=== PATIENT | female | born 1940 | race Caucasian/White ===

== ENCOUNTER 2019-12-08 10:28 | Outpatient (CLI) | payer MEDICARE, OTHER, SELFPAY ==
--- NOTE | 2019-12-11 17:54 | ONC FU_ITS ---
Dr. Lopez Patient Follow-Up Note Patient: Jenna Weiss Unit #: [id number]: [id number] Dicatated By: Noam Lopez M.D.Date of Visit:Dec 08, 2019 Onc Med Follow-up/Prog Note Chief Complaint: Breast cancer/hemochromatosis. History of Present Illness: This is a 77 year-old woman with grade 2 infiltrating ductal carcinoma of the right breast, stage IIB (T2, N2, M0), ER/ND positive and HER-2/connie negative. 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 She underwent right modified radical mastectomy in January 2004. She was given adjuvant chemotherapy with 5-FU/epirubicin/cyclophosphamide. She had severe toxicities with her first cycle of treatment and she received no further chemotherapy. She subsequently did receive 5 years of adjuvant hormonal therapy with Femara, which she completed in February 2009. Thus far there has been no evidence of recurrence of her breast cancer. I had seen her for a scheduled follow-up visit in May 2014. Prior to that visit she had been told by her primary care provider that her iron level was elevated. With that visit, I did recheck a serum ferritin level, and it was indeed elevated at 645 ng/mL. 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 She was then started on a phlebotomy program. As of March 2016 her transferrin saturation and ferritin level were both in target range, and I did have her stop phlebotomies. Her other medical illnesses include type 2 diabetes, degenerative arthritis, and osteoporosis. She underwent right total knee replacement in March 2014. She is a nonsmoker. INTERIM HISTORY: Her laboratory studies from 08/07/2017 included CBC showing hemoglobin 15.5 g, white blood cell count 4600, and platelet count 138,000. The serum iron was elevated at 184 mcg/dL with transferrin saturation 66%. The ferritin level was 127 ng/mL. With those findings, I did have her restart monthly phlebotomies. As of February 2018 the transferrin saturation had decreased to 21%. Ferritin was in target range at 37.7 ng/mL. At that point the frequency of her phlebotomies was reduced to every 3 months. She is seen for a follow-up visit. She has been feeling good generally. She has good energy and activity tolerance. ECOG score 0. Appetite is good. She has no fever or night sweats. She has no shortness of breath, cough, or chest pain. She has no GI or complaints. She has no significant joint or bone pain. She does not complain of headache or dizziness. She has no focal neurologic symptoms. Medications: She is on no prescription medication. Allergies: ibuprofen Review of Systems: Constitutional - She has good energy and she has normal activity. Appetite is good and weight is stable. No fever, night sweats, or hot flashes. ECOG score is 0, ENMT - She has allergy related sinus symptoms. No mouth sores. No sore throat or difficulty swallowing, Hematologic/Lymphatic - No abnormal bruising or bleeding, Respiratory - No shortness of breath. No cough. No pleuritic pain or hemoptysis, Cardiovascular - No angina pain. No palpitations, Gastrointestinal - No nausea or vomiting. No heartburn or acid reflux. No diarrhea or constipation. No blood in the stool or black stools, Genitourinary (F) - No dysuria or hematuria. No urinary frequency. No urgency or incontinence, Musculoskeletal - No joint or bone pain, Integumentary - No skin changes, Neurologic - No headache or dizziness. No numbness or tingling. No other focal neurologic symptoms, Psychiatric - No anxiety or depression. No insomnia. Vital Signs: Performed on Dec 08, 2019 10:47 Height - 66.00 in Weight - 162 lbs (HIGH) BSA - 1.83 sq.m BMI - 26.15 Temperature - 97.5 F (LOW) Pulse - 76 /min Respiration - 16 /min BP - 130/80 mm(hg) O2 Sat - 97 % Pain - 0 Physical Examination: Constitutional - She looks good generally, Eyes - Sclerae nonicteric. Conjunctivae clear, ENMT - No lesions noted in the oral cavity, Hematologic/Lymphatic - No cervical, clavicular, or axillary adenopathy, Respiratory - Lungs are clear with good air movement bilaterally, Cardiovascular - Heart rhythm is regular. There is no murmur, gallop, or rub noted, Breasts - There are no lesions noted in the right chest wall. There is no axillary adenopathy, Abdomen - Soft. Liver and spleen are not enlarged. There is no abdominal mass or ascites noted and there is no inguinal adenopathy, Extremities - No edema, Integumentary - No rashes. No suspicious skin lesions noted, Neurologic - No focal neurologic deficits noted. Lab/Imaging: Test performed on Dec 07, 2019 12:53 Glucose 106 mg/dL BUN 14 mg/dL Creatinine 1.06 mg/dL Cr Clearance (Est) 50.92 mL/min Sodium 141 mmol/L Potassium 4 mmol/L Chloride 104 mmol/L CO2 27 mmol/L Calcium 9.6 mg/dL Protein, Total 7.2 g/dL Albumin 4.4 g/dL Bilirubin, Total 0.9 mg/dL Alkaline Phosphatase 78 IU/L AST (SGOT) 20 IU/L ALT (SGPT) 12 IU/L WBC 6 10^9/L RBC 4.88 10^12/L HGB 14.7 g/dL HCT 45.2 % MCV 92.6 fl MCH 30.1 pg MCHC 32.5 g/dL RDW 13.6 % Platelet Count 152 10^9/L Neutrophils (Gran) 3.86 10^9/L Lymphocytes 1.66 10^9/L Monocytes 0.32 10^9/L Eosinophils .08 10^9/L Basophils .03 10^9/L Test performed on Dec 07, 2019 08:49 Ferritin 47.1 ng/mL % Iron Saturation 54 % Iron, Total 146 mcg/dL TIBC 268 mcg/dL MPV 10.9 fL Manual Lymphocytes 28 % Manual Monocytes 5 % Manual Eosinophils 1 % Manual Basophils 1 % Impression: 1. Patient has stage IIB infiltrating ductal carcinoma of the right breast, ER/ND positive and HER-2/connie negative. Treatment included right modified radical mastectomy in January 2004 followed by one cycle of adjuvant chemotherapy wtih FEC and 5 years of adjuvant hormonal therapy with Femara, completed in February 2009. 2. 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 Her other medical illnesses include: 3. Type II diabetes. 4. Osteoporosis. 5. Degenerative arthritis. She was managed on a phlebotomy program for the hemochromatosis. As of March 2016 her transferrin saturation and ferritin were in target range, and I did have her stop phlebotomies. Her follow-up laboratory studies in July 2017 showed her transferrin saturation increased at 66% with ferritin level 127 ng/mL. With those findings, she has restarted monthly phlebotomies. As of February 2018 her transferrin saturation and serum ferritin were in target range, and at that point I reduced the frequency of her phlebotomies to every 3 months. Her subsequent transferrin saturation and ferritin levels had improved, and at that point I did change her phlebotomies to 1/2 unit, as she was getting lightheaded with a full unit phlebotomy. She has since then been tolerating them well. Her current serum iron studies show slightly elevated transferrin saturation at 52%, but the ferritin is in target range at 47 ng/mL. Overall, she is doing very well clinically. Plan: She will continue 1/2 unit phlebotomy every 3 months. I will recheck serum iron studies and ferritin at 6-month intervals. I will see her again in 1 year. Signed By: Noam Lopez M.D. <<Signature on File>>
== END 2019-12-08 10:29 | disposition home or self-care (01) ==
LOC: ONCMED 10:29
PROVIDERS: Family Provider Nurse Practitioner Family; Visit Provider Internal Medicine Medical Oncology
DX: Z08 Encounter for follow-up examination after completed treatment for malignant neoplasm (principal); Z85.3 Personal history of malignant neoplasm of breast; E83.110 Hereditary hemochromatosis; D50.9 Iron deficiency anemia, unspecified; M81.0 Age-related osteoporosis without current pathological fracture; E11.9 Type 2 diabetes mellitus without complications; Z79.899 Other long term (current) drug therapy
CPT/HCPCS: 99214

== ENCOUNTER → 2020-05-20 13:58 | Outpatient (BNVA) | payer MEDICARE, OTHER, SELFPAY | PROVIDERS: Family Provider Nurse Practitioner Family; Visit Provider Surgery | DX: Z20.822 Contact with and (suspected) exposure to COVID-19 (principal) | CPT/HCPCS: 87635 ==

== ENCOUNTER 2020-05-25 07:59 | Day surgery (SDC) | payer MEDICARE, OTHER, SELFPAY ==
[2020-05-23 11:01] VITALS: BMI 26.6
--- NOTE | 2020-05-25 08:19 | ANES.PREANE2 ---
Pre-Anesthetic Assessment Pre-Anesthetic Assessment: Height/Weight: Height 1.65 m Weight 72.575 kg Preop Diagnosis: nausea Proposed Procedure: Operation Date: 05/25/20 09:30 Proposed Procedures p EGD 31371 R10.9(Not Applicable) - aRmu Walton MD Familial anesthetic complications: None Was Beta Jeúss taken within 24 hours: N/A Was Clonidine taken within 24 hours: N/A Last intake: > 8 hrs Social: Social History: No alcohol and No tobacco Exam: Pre-Anes Outpt Exam: alert, oriented x 3, clear to auscultation bilaterally and regular rate & rhythm Airway: Cervical ROM: WNL MP: 3 Dentition: False Metabolic: Metabolic: DM (type 2, diet and lifestyle controlled) Anesthetic Plan: ASA status: 1 Anesthesia: MAC Risk of > 500 ml blood loss (7ml/kg in children): No PFSH Anesthesia PFSH: Social History Smoking and tobacco status: never smoked Second hand smoke exposure: No Alcohol intake: never Desire information about alcohol rehabilitation?: No Lives independently: Yes Data Anesthesia Cardiac Studies: No Data to Display
[2020-05-25 08:54] VITALS: BP 138/87; PULSE 70; RESP 16; TEMP 36.1; O2SAT 98
[2020-05-25] MEDS: sodium chloride 0.9% 1,000 ML 30 ML IV (08:56)
[2020-05-25 09:00] LABS: Glucose Point of Care 97 mg/dL (70-110)
--- NOTE | 2020-05-25 10:57 | W.PM.OPSUD ---
Surgery/Procedure H&P Update DATE OF PROCEDURE: May 25, 2020 DATE H&P PERFORMED: 05/02/20 H&P UPDATE INFORMATION: I have reviewed H&P completed within last 30 days, I have examined patient prior to procedure and No changes to prior documentation PREOP DIAGNOSIS: Anorexia PRIMARY INDICATION FOR PROCEDURE: The same PLANNED PROCEDURE: Operation Date: 05/25/20 09:30 Proposed Procedures p EGD 50735 R10.9(Not Applicable) - Ramu Walton MD
[2020-05-25 11:16] VITALS: BP 121/63; PULSE 74; RESP 18; TEMP 36.9; O2SAT 100
--- NOTE | 2020-05-25 11:17 | ANE.PACU2 ---
Inpatient post-anesthesia follow up: Airway intact: Yes Vital signs: Temperature 97 F Pulse Rate 70 Respiratory Rate 16 Blood Pressure 138/87 Pulse Oximetry 98 Oxygen Delivery Me thod Oxygen Flow Rate Fraction of Inspir ed Oxygen Hydration adequate: Yes Nausea and vomiting: No Pain level: 1 Mental status: Baseline
[2020-05-25 11:31] VITALS: BP 141/70; PULSE 65; RESP 16; O2SAT 100
== END 2020-05-25 11:50 | disposition home or self-care (01) ==
PROVIDERS: PCP Nurse Practitioner Family; Visit Provider Surgery
PROC: 0DJ08ZZ Inspection of Upper Intestinal Tract, Via Natural or Artificial Opening Endoscopic (ICD-10-PCS; CPT 43235; principal; 2020-05-25 09:30)
DX: R63.0 Anorexia (principal); K31.7 Polyp of stomach and duodenum; K44.9 Diaphragmatic hernia without obstruction or gangrene; K29.70 Gastritis, unspecified, without bleeding; E11.9 Type 2 diabetes mellitus without complications; R11.0 Nausea
CPT/HCPCS: 36416; 43239; 82962; 88305; 96360; 96361; J2704; J7030

== ENCOUNTER 2020-06-20 08:19 | Outpatient (CLI) | payer MEDICARE, OTHER, SELFPAY ==
--- NOTE | 2020-06-20 08:28 | US_ITS ---
WS: [id number] ULTRASOUND ABDOMEN LIMITED CLINICAL INFORMATION: ABDOMINAL PAIN COMPARISON: None. FINDINGS: Liver Size: Normal. Craniocaudal length: 13.8 cm. Echogenicity: Normal. Surface nodularity: None. Mass (size and location): None. Bile ducts Intrahepatic ducts: Normal. Common bile duct diameter: 0.5 cm. Gallbladder Gallstones Gallstones: Present Gallbladder sludge: None. Gallbladder wall thickening: None. Pericholecystic fluid: None. Sonographic Banegas sign: Absent. Pancreas Normal as visualized. Right kidney: Normal. Hydronephrosis: None. Size: 9.8 cm x 5.0 cm x 3.8 cm. Abdominal aorta and IVC Visualized portions are normal. Ascites: None. US/US gall bladder 06044 IMPRESSION: 1. Normal liver. 2. Cholelithiasis. Normal gallbladder wall. Normal common bile duct. 3. No hydronephrosis in right kidney.
== END 2020-06-20 08:20 | disposition home or self-care (01) ==
LOC: US 08:20
PROVIDERS: PCP Nurse Practitioner Family; Visit Provider Surgery
DX: R10.9 Unspecified abdominal pain (principal); K80.20 Calculus of gallbladder without cholecystitis without obstruction
CPT/HCPCS: 76705

== ENCOUNTER 2020-07-21 05:57 | Day surgery (SDC) | payer MEDICARE, OTHER, SELFPAY ==
[2020-07-15 11:50] VITALS: BMI 26.6
[2020-07-21] VITALS (9 sets, daily range): BP systolic 105–143; BP diastolic 48–78; PULSE 58–79; RESP 12–20; TEMP 36.1–36.4; O2SAT 96–100
[2020-07-21] MEDS: acetaminophen 1,000 MG/100 ML PIGGYBACK 400 MG IV (06:30)
[2020-07-21] MEDS: sodium chloride 0.9% 1,000 ML 30 ML IV (06:30)
--- NOTE | 2020-07-21 06:31 | W.PM.OPSUD ---
Surgery/Procedure H&P Update DATE OF PROCEDURE: July 21, 2020 DATE H&P PERFORMED: 06/23/20 H&P UPDATE INFORMATION: I have reviewed H&P completed within last 30 days, I have examined patient prior to procedure and No changes to prior documentation PREOP DIAGNOSIS: Symptomatic cholelithiasis PRIMARY INDICATION FOR PROCEDURE: The same PLANNED PROCEDURE: Operation Date: 07/21/20 07:00 Proposed Procedures p Laparoscopic poss Open Cholecystectomy 05175 K80.20(Not Applicable) - Ramu Walton MD
[2020-07-21] MEDS: ampicillin-sulbactam 3 GM in sodium chloride 0.9% (plus) 50 ML IV (06:55)
--- NOTE | 2020-07-21 07:00 | ANES.PREANE2 ---
Pre-Anesthetic Assessment Pre-Anesthetic Assessment: Height/Weight: Height 1.65 m Weight 72.575 kg Temp Pulse Resp BP Pulse Ox 97.1 F L 79 16 141/78 97 07/21/20 06:15 07/21/20 06:15 07/21/20 06:15 07/21/20 06:15 07/21/20 06:15 Preop Diagnosis: Symptomatic cholelithiasis Proposed Procedure: Operation Date: 07/21/20 07:00 Proposed Procedures p Laparoscopic poss Open Cholecystectomy 41627 K80.20(Not Applicable) - Ramu Walton MD Was Beta Jesús taken within 24 hours: N/A Was Clonidine taken within 24 hours: N/A Last intake: Intake Last Liquid Date 07/20/20 Last Liquid Time 21:30 Last Solid Date 07/09/20 Social: Social History: No alcohol and No tobacco Exam: Pre-Anes Outpt Exam: alert, oriented x 3, clear to auscultation bilaterally and regular rate & rhythm Airway: Submandibular: WNL Cervical ROM: WNL MP: 2 Dentition: False History/ROS: No significant history except as noted Anesthetic Plan: ASA status: 2 Anesthesia: General Risk of > 500 ml blood loss (7ml/kg in children): No Meds/Allergies Current Medications: Current Medications Generic Name Dose Route Start Last Admin Trade Name Freq PRN Reason Stop Dose Admin Sodium Chloride 1,000 mls @ 30 ml s/hr 07/21/20 06:00 07/21/20 06:30 Sodium Chloride 0.9% IV 07/22/20 05:59 30 mls/hr .Q24H TRINH Administration PFSH Anesthesia PFSH: Medical History Gastric diverticulum Gastritis Hiatal hernia Social History Smoking and tobacco status: never smoked Second hand smoke exposure: No Alcohol intake: never Desire information about alcohol rehabilitation?: No Lives independently: Yes Data Anesthesia Cardiac Studies: No Data to Display
[2020-07-21] MEDS: lidocaine 2% INJ 20 mL INJECTION (07:49)
--- NOTE | 2020-07-21 08:08 | PM.OP ---
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 Full H&P and informed consent per chart. Procedure: Patient was identified in the holding area and taken back to the operative suite, placed in supine position intubated by anesthesia . Time-out was done verifying the patient's name/date of /planned procedure and destination after the procedure, all were in agreement. SCDs confirmed to be functioning, preoperative antibiotics administered per protocol, and beta adrienne protocol was confirmed. Patient was appropriately secured to the table, footboard was applied to the OR table, before prep and drape anesthesia was asked to tilt the table back and forth to make sure that the patient is appropriately secured and she was. Prep and drape of the abdomen was done under the usual sterile technique, followed by that infraumbilical skin incision,skin incision was done by a 15 blade knife, and stay sutures were applied to the fascia and Srinivasan trocar technique was used to enter the abdominal without injuring any abdominal viscera, started by low flow gas insufflation followed by a high flow, started with a 10 mm laparoscope and under direct vision there was no evidence of any injuries, the scope then switched to a 30? ,10 millimeter scope and under direct visualization 5 millimeter trocar was inserted in the epigastric region followed by two 5 mm trocars were inserted in the right upper quadrant that was done after injection of local lidocaine 2% at all incision sites. Gallbladder showed acute calculus cholecystitis with edema &with adhesions and the lymph node was associated that was dissected and sent out for permanent pathology. Patient was then positioned in the head up and tilted to the left Ratcheted forceps were introduced into the lateral most 5mm port and was applied unto the fundus of the gallbladder cephalad and using Bullet forceps the infundibulum of the gallbladder was retracted laterally. The gallbladder was markedly distended and I had to aspirate fluid content under direct visualization which was white bilious in color,20 ml of fluid was sent for cultures and sensitivities and at that point I was able to have a better parent educator on the gallbladder. Using [place] forceps then L-hook cautery to dissect the peritoneum overlying the Calot's triangle which was then opened medially and laterally until the cystic duct and the cystic artery were skeletonized. Dissection was carried along the body of the gallbladder and after ensuring critical view of safety was identfied. Edema and thickness of the wall was appreciated and inadvertent opening of the gallbladder encountering larger bigger stones Cystic duct and cystic artery where seen connected to the gallbladder. Clips were applied on the cystic duct towards the common bile duct 1 towards the gallbladder then divided is in sharp scissors, 2 clips were then applied onto the cystic artery and 1 towards the gallbladder and divided by sharp scissors. Dissection was then carried along of the gallbladder from the gallbladder fossa using cautery as well as sharp dissection with heat energy. The gallbladder then was dissected out from the gallbladder fossa totally , cholecystectomy was then achieved and was placed in an Endo Catch bag including the stones all were retrieved from the Srinivasan trocar site under direct visualization using a 5 mm 30? scope through the epigastric trocar, specimen was then passed to the circulating nurse to go for permanent pathology, copious and thorough irrigation and hemostasis was done to the gallbladder fossa after hemostasis was secured, final survey laparoscopy was done that showed no injuries. Suction irrigation was obtained The infra umbilical fascial defect was then closed using interrupted #1 PDS sutures using a fascial closure device ;Maikel Flores under direct visualization Gas was allowed to deflate,Trocars were then taken out under direct vision there was no evidence of bleeding Specimen was passed to the circulating nurse for permanent pathology. No drains were placed and the infra umbilical incision as well as all trocar sites were closed by 3-0 Vicryl followed by by 4-0 Monocryl to approximate the skin edges of the supraumbilical incision, dressing was applied in the form of Dermabond and the patient patient got extubated and was taken to recovery area in a stable condition. Count of sponges,needles and instruments were completed at the end of the procedure I was present for the whole entire procedure.
[2020-07-21] MEDS: HYDROcodone-acetaminophen 5-325 mg Tablet 1 TAB PO (09:25)
--- NOTE | 2020-07-21 15:00 | ANE.PACU2 ---
Inpatient post-anesthesia follow up: Airway intact: Yes Vital signs: Temperature 97.6 F Pulse Rate 58 Respiratory Rate 16 Blood Pressure 105/48 Pulse Oximetry 96 Oxygen Delivery Me thod Room Air Oxygen Flow Rate 8 Fraction of Inspir ed Oxygen Hydration adequate: Yes Nausea and vomiting: No Pain level: 2 Mental status: Baseline
== END 2020-07-21 09:45 | disposition home or self-care (01) ==
PROVIDERS: PCP Nurse Practitioner Family; Visit Provider Surgery
PROC: 0FT44ZZ Resection of Gallbladder, Percutaneous Endoscopic Approach (ICD-10-PCS; CPT 47562; principal; 2020-07-21 07:00)
DX: K80.10 Calculus of gallbladder with chronic cholecystitis without obstruction (principal)
CPT/HCPCS: 47562; 87070; 87075; 87205; 88304; 88305; 96365; J0295; J1100; J2250; J2370; J2405; J2704; J2710; J3010; J3490; J7030

== ENCOUNTER 2021-01-31 16:19 | Outpatient (CLI) | payer MEDICARE, OTHER, SELFPAY ==
--- NOTE | 2021-02-04 07:36 | ONC FU_ITS ---
Dr. Lopez Patient Follow-Up Note Patient: Jenna Weiss Unit #: [id number]: [id number] Dicatated By: Noam Lopez M.D.Date of Visit:Jan 31, 2021 Onc Med Follow-up/Prog Note Chief Complaint: Breast cancer/hemochromatosis. History of Present Illness: This is a 80 year-old woman with grade 2 infiltrating ductal carcinoma of the right breast, stage IB (T2, N2, M0), ER/FL positive and HER-2/connie negative. 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 She underwent right modified radical mastectomy in January 2004. She was given adjuvant chemotherapy with 5-FU/epirubicin/cyclophosphamide. She had severe toxicities with her first cycle of treatment and she received no further chemotherapy. She subsequently did receive 5 years of adjuvant hormonal therapy with Femara, which she completed in February 2009. Thus far there has been no evidence of recurrence of her breast cancer. I had seen her for a scheduled follow-up visit in May 2014. Prior to that visit she had been told by her primary care provider that her iron level was elevated. With that visit, I did recheck a serum ferritin level, and it was indeed elevated at 645 ng/mL. 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 She was then started on a phlebotomy program. As of March 2016 her transferrin saturation and ferritin level were both in target range, and I did have her stop phlebotomies. Her other medical illnesses include type 2 diabetes, degenerative arthritis, and osteoporosis. She underwent right total knee replacement in March 2014. She is a nonsmoker. INTERIM HISTORY: Her laboratory studies from 08/07/2017 included CBC showing hemoglobin 15.5 g, white blood cell count 4600, and platelet count 138,000. The serum iron was elevated at 184 mcg/dL with transferrin saturation 66%. The ferritin level was 127 ng/mL. With those findings, I did have her restart monthly phlebotomies. As of February 2018 the transferrin saturation had decreased to 21%. Ferritin was in target range at 37.7 ng/mL. At that point the frequency of her phlebotomies was reduced to every 3 months. She is seen now for a follow-up visit. She has been feeling better generally after having gallbladder surgery back in July.. Her only significant complaint is that yesterday she woke up with pain on her left side, severe enough that she is not able to take a deep breath. She has otherwise not been short of breath, and she has not had cough or fever. She says she does not have the energy that she used to. She is still doing light work. ECOG score is 1. She has good appetite. She has not had sore mouth or throat. She occasionally has some light nausea. She has no other GI or complaints. She has no other joint or bone pain. She does not complain of headache. She occasionally has dizziness. She has some numbness/tingling in her feet. Medications: Daily Multiple Vitamins Tablet Oral Take as Directed Allergies: ibuprofen Vital Signs: Performed on Jan 31, 2021 16:39 Height - 66.00 in Weight - 162.0 lbs BSA - 1.83 sq.m BMI - 26.15 Temperature - 98.0 F (LOW) Pulse - 100 /min Respiration - 20 /min BP - 168/90 mm(hg) (HIGH) O2 Sat - 95 % (LOW) Pain - 9 Fatigue - 5 Physical Examination: Constitutional - She looks good generally, Eyes - Sclerae nonicteric. Conjunctivae clear, ENMT - No lesions noted in the oral cavity, Hematologic/Lymphatic - No cervical or clavicular adenopathy, Respiratory - Lungs are clear with good air movement bilaterally, Cardiovascular - Heart rhythm is regular. There is no murmur, gallop, or rub noted, Breasts - The right chest wall shows no lesions. There is no axillary adenopathy noted, Abdomen - Soft. Liver and spleen are not enlarged. There is no abdominal mass or ascites noted and there is no inguinal adenopathy, Extremities - No edema, Neurologic - No focal neurologic deficits noted. Lab/Imaging: Test performed on Dec 05, 2020 11:03 Glucose 75 mg/dL BUN 13 mg/dL Creatinine 0.94 mg/dL Cr Clearance (Est) 57.22 mL/min Sodium 139 mmol/L Potassium 4.5 mmol/L Chloride 103 mmol/L CO2 27 mmol/L Calcium 9.8 mg/dL Protein, Total 7.4 g/dL Albumin 4.4 g/dL Bilirubin, Total 0.9 mg/dL Alkaline Phosphatase 77 International Units/L AST (SGOT) 23 International Units/L ALT (SGPT) 14 International Units/L WBC 4.9 10^9/L RBC 5.17 10^12/L HGB 15.8 g/dL HCT 48.2 % MCV 93.2 fl MCH 30.6 pg MCHC 32.6 g/dL RDW 13.2 % Platelet Count 144 10^9/L MPV 10.7 fL Neutrophils (Gran) 53 10^9/L Lymphocytes 1.911 10^9/L Monocytes 0.294 10^9/L Eosinophils 0.098 10^9/L Basophils 0.049 10^9/L Problem List: 1. Grade 2 infiltrating ductal carcinoma of the right breast, stage IB (T2, N2, M0), ER/FL positive and HER-2/connie negative. Treatment included right modified radical mastectomy in January 2004 followed by one cycle of adjuvant chemotherapy wtih FEC and 5 years of adjuvant hormonal therapy with Femara, completed in February 2009. 2. 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 3. Type II diabetes. 4. Osteoporosis. 5. Degenerative arthritis. Problems Addressed with this Encounter and Plan: 1. 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 She has been managed with phlebotomy. Has recurrent serum iron studies show transferrin saturation in normal range with ferritin near the upper end of target range at 101 ng/mL, she will continue 1/2 unit phlebotomy every 3 months. I will just plan to see her again in 1 year. 2. She has recent onset of pleuritic pain in the left chest with shortness of breath. She will be scheduled for CT pulmonary angiogram. She will further evaluation as indicated. 3. She has a history of grade 2 infiltrating ductal carcinoma of the right breast, Stage IB (T2, N2, M0), ER/FL positive and HER-2/connie negative. Treatment included right modified radical mastectomy in January 2004 followed by one cycle of adjuvant chemotherapy wtih FEC and 5 years of adjuvant hormonal therapy with Femara, completed in February 2009. During follow-up there has been no evidence of recurrence. She remains on observation/expectant management. Signed By: Noam Lopez M.D. <<Signature on File>>
== END 2021-01-31 16:20 | disposition home or self-care (01) ==
PROVIDERS: PCP Nurse Practitioner Family; Visit Provider Internal Medicine Medical Oncology
DX: E83.110 Hereditary hemochromatosis (principal); R07.81 Pleurodynia; R06.02 Shortness of breath; E11.9 Type 2 diabetes mellitus without complications; M81.0 Age-related osteoporosis without current pathological fracture; Z85.3 Personal history of malignant neoplasm of breast
CPT/HCPCS: 99214

== ENCOUNTER 2021-05-29 13:54 | Outpatient (CLI) | payer MEDICARE, OTHER, SELFPAY ==
--- NOTE | 2021-05-29 14:08 | MM_ITS ---
WS: [id number] VIEWS: MLO, CC, and ML views left breast only 3D digital tomosynthesis is also included in this exam . Comparison made with prior exam of 08/03/2016 09/24/2018 10/08/2019. Findings: There was no sign of mass, architectural distortion or suspicious calcification in either breast. Sc attered fibroglandular densities MM/[place] [id number] Impression: BI-RADS: 2-Benign FOLLOW-UP: 1 Year Follow-up This mammogram was also analyzed by the Computer Aided Detection System R2 Imag e Pack Puller.
== END 2021-05-29 13:55 | disposition home or self-care (01) ==
LOC: RAD 13:57
PROVIDERS: PCP Nurse Practitioner Family; Visit Provider Registered Nurse
DX: Z85.3 Personal history of malignant neoplasm of breast (principal); Z90.11 Acquired absence of right breast and nipple
CPT/HCPCS: 77061

== ENCOUNTER → 2021-06-21 11:13 | Outpatient (BNVA) | payer MEDICARE, OTHER, SELFPAY | PROVIDERS: PCP Nurse Practitioner Family; Visit Provider Surgery | DX: K31.7 Polyp of stomach and duodenum (principal) | CPT/HCPCS: 99213 ==

== ENCOUNTER 2021-11-15 12:52 | Oncology outpatient (recurring) (ONCR) | payer MEDICARE, OTHER, SELFPAY ==
[2021-11-15 13:23] LABS: Basophils # 0.1 10^3/uL (0.0-0.1); Basophils % 0.7 %; Eosinophils # 0.1 10^3/uL (0.0-0.8); Eosinophils % 0.9 %; Hematocrit 44.7 % (37.0-47.0); Hemoglobin 15.2 g/dL (11.5-15.3); Lymphocytes % 40.7 %; Mean Corpuscular Hemoglobin 32.8 pg (28.0-34.0); Mean Corpuscular Volume 96.3 fl (81-99); Monocytes # 0.5 10^3/uL (0.2-0.9); Monocytes % 7.1 %; Neutrophils # 3.76 10^3/uL (1.8-7.7); Neutrophils % 50.3 %; Nucleated Red Blood Cells % 0 %; Platelet Count 158 10^3/cmm (130-400); Red Blood Count 4.64 10^6/uL (4.1-5.3); Red Cell Distribution Width 12.3 % (12.1-15.1); White Blood Count 7.5 10^3/uL (4.0-10.0)
[2021-11-15 13:24] VITALS: BP 131/81; PULSE 85; RESP 16; TEMP 36.6; O2SAT 98
== END 2021-11-17 23:59 | disposition home or self-care (01) ==
LOC: ONCMED 12:54
PROVIDERS: PCP Registered Nurse; Visit Provider Internal Medicine Medical Oncology
DX: E83.119 Hemochromatosis, unspecified (principal)
CPT/HCPCS: 36415; 85025; 99195

== ENCOUNTER → 2021-12-21 14:24 | Outpatient (BNVA) | payer MEDICARE, OTHER, SELFPAY | PROVIDERS: PCP Registered Nurse; Visit Provider Podiatrist Foot & Ankle Surgery | DX: E11.8 Type 2 diabetes mellitus with unspecified complications (principal); M20.41 Other hammer toe(s) (acquired), right foot; M20.42 Other hammer toe(s) (acquired), left foot; I73.9 Peripheral vascular disease, unspecified; L60.3 Nail dystrophy; E11.42 Type 2 diabetes mellitus with diabetic polyneuropathy | CPT/HCPCS: 11721 ==

== ENCOUNTER 2022-02-15 13:09 | Oncology outpatient (recurring) (ONCR) | payer MEDICARE, OTHER, SELFPAY ==
[2022-02-15 13:47] LABS: Basophils % 0.3 %; Eosinophils # 0.1 10^3/uL (0.0-0.8); Eosinophils % 1.6 %; Hematocrit 44.6 % (37.0-47.0); Hemoglobin 14.8 g/dL (11.5-15.3); Lymphocytes # 2.1 10^3/uL (0.8-4.8); Lymphocytes % 30.3 %; Mean Corpuscular HGB Conc 33.2 g/dL (30.0-36.0); Mean Corpuscular Hemoglobin 31.9 pg (28.0-34.0); Mean Corpuscular Volume 96.1 fl (81-99); Mean Platelet Volume 11.2 fL (7.4-10.4); Monocytes # 0.4 10^3/uL (0.2-0.9); Monocytes % 5.3 %; Neutrophils # 4.24 10^3/uL (1.8-7.7); Neutrophils % 62.4 %; Nucleated Red Blood Cells % 0 %; Platelet Count 146 10^3/cmm (130-400); Red Blood Count 4.64 10^6/uL (4.1-5.3); Red Cell Distribution Width 12.4 % (12.1-15.1); White Blood Count 6.8 10^3/uL (4.0-10.0)
== END 2022-02-17 23:59 | disposition home or self-care (01) ==
LOC: ONCMED 13:10
PROVIDERS: PCP Nurse Practitioner Family; Visit Provider Internal Medicine Medical Oncology
DX: E83.119 Hemochromatosis, unspecified (principal); Z79.899 Other long term (current) drug therapy
CPT/HCPCS: 36415; 85025; 99195

== ENCOUNTER 2022-02-28 16:21 | Oncology outpatient (recurring) (ONCR) | payer MEDICARE, OTHER, SELFPAY | END 2022-03-20 23:59 | disposition home or self-care (01) | PROVIDERS: PCP Nurse Practitioner Family; Visit Provider Internal Medicine Medical Oncology | DX: E83.119 Hemochromatosis, unspecified (principal) | CPT/HCPCS: 99213 ==

== ENCOUNTER → 2022-05-01 10:27 | Outpatient (BNVA) | payer MEDICARE, OTHER, SELFPAY | PROVIDERS: PCP Nurse Practitioner Family; Visit Provider Podiatrist Foot & Ankle Surgery | DX: I73.9 Peripheral vascular disease, unspecified (principal); M20.41 Other hammer toe(s) (acquired), right foot; M20.42 Other hammer toe(s) (acquired), left foot; L60.3 Nail dystrophy; E11.42 Type 2 diabetes mellitus with diabetic polyneuropathy | CPT/HCPCS: 11721 ==

== ENCOUNTER → 2022-07-17 13:41 | Outpatient (BNVA) | payer MEDICARE, OTHER, SELFPAY | PROVIDERS: PCP Nurse Practitioner Family; Visit Provider Podiatrist Foot & Ankle Surgery | DX: I73.9 Peripheral vascular disease, unspecified (principal); M20.41 Other hammer toe(s) (acquired), right foot; M20.42 Other hammer toe(s) (acquired), left foot; L60.3 Nail dystrophy; E11.42 Type 2 diabetes mellitus with diabetic polyneuropathy | CPT/HCPCS: 11721 ==

== ENCOUNTER 2022-07-29 18:31 | Emergency (ER) | payer MEDICARE, OTHER, SELFPAY ==
[2022-07-29 18:34] VITALS: BP 126/69; PULSE 95; RESP 14; TEMP 36.7; O2SAT 96; BMI 27.3
--- NOTE | 2022-07-29 19:10 | USR_ITS ---
PROCEDURE INFORMATION: Exam: US Duplex Bilateral Extracranial Arteries; Complete; Carotid Arteries Exam date and time: 07/29/2022 8:27 PM Age: 81 years old Clinical indication: Weakness, extremity; Bilateral; Additional info: TIA, weakness, TECHNIQUE: Imaging protocol: Real-time duplex ultrasound scan of the bilateral extracranial arteries combining dixon scale, color Doppler and spectral waveform analysis with image documentation. Complete exam. Exam focused on the carotid arteries. COMPARISON: CT head wo con* [id number] 07/29/2022 7:33 PM FINDINGS: Right common carotid artery: Unremarkable. No occlusion or stenosis. Waveforms are normal. Right internal carotid artery: Unremarkable. No occlusion or stenosis. Waveforms are normal. Right ICA/CCA ratio: Within normal limits. Right external carotid artery: No stenosis in the origin. Right vertebral artery: Unremarkable. Antegrade flow. Left common carotid artery: Unremarkable. No occlusion or stenosis. Waveforms are normal. Left internal carotid artery: Unremarkable. No occlusion or stenosis. Waveforms are normal. Left ICA/CCA ratio: Within normal limits. Left external carotid artery: No stenosis in the origin. Left vertebral artery: Unremarkable. Antegrade flow. US/CV carotid duplex BI* [id number] IMPRESSION: No carotid arterial stenosis. REFERENCES: SRU CRITERIA. The degree of internal carotid artery stenosis is based on criteria defined by the Society of Radiologists in Ultrasound (SRU). Normal is no stenosis. Mild is less than 50% stenosis. Moderate is 50-69% stenosis. Severe is greater than 69% stenosis to near occlusion. Near occlusion is a markedly narrowed lumen. Total occlusion is no detectable patent lumen.
--- NOTE | 2022-07-29 19:10 | CTR_ITS ---
PROCEDURE INFORMATION: Exam: CT Head Without Contrast Exam date and time: 07/29/2022 7:33 PM Age: 81 years old Clinical indication: Weakness, extremity; Bilateral; Patient HX: Arms feel heavy, general feeling of weakness TECHNIQUE: Imaging protocol: Computed tomography of the head without contrast. Radiation optimization: All CT scans at this facility use at least one of these dose optimization techniques: automated exposure control; mA and/or kV adjustment per patient size (includes targeted exams where dose is matched to clinical indication); or iterative reconstruction. REPORTING DATA: Count of CT and Cardiac NM exams in prior 12 months: This patient has received 0 known CTs and 0 known cardiac nuclear medicine studies in the 12 months prior to the current study. COMPARISON: No relevant prior studies available. RADIATION DOSE METRICS: Total DLP (mGy-cm): 1090.68 FINDINGS: Brain: Normal. No hemorrhage. Unremarkable white matter. No mass effect. Cerebral ventricles: No ventriculomegaly. Paranasal sinuses: Small fluid left maxillary sinus and in left posterior ethmoid air cell. Mastoid air cells: Visualized mastoid air cells are well aerated. Bones/joints: No acute findings. Soft tissues: Unremarkable. CT/CT head wo con* [id number] IMPRESSION: No acute intracranial abnormality.
[2022-07-29 19:21] LABS: Basophils % 0.6 %; Eosinophils # 0.2 10^3/uL (0.0-0.8); Eosinophils % 2.4 %; Hematocrit 43.8 % (37.0-47.0); Hemoglobin 14.6 g/dL (11.5-15.3); Lymphocytes # 2.5 10^3/uL (0.8-4.8); Lymphocytes % 36.2 %; Mean Corpuscular HGB Conc 33.3 g/dL (30.0-36.0); Mean Corpuscular Hemoglobin 31.7 pg (28.0-34.0); Mean Corpuscular Volume 95.2 fl (81-99); Mean Platelet Volume 10.8 fL (7.4-10.4); Monocytes # 0.5 10^3/uL (0.2-0.9); Monocytes % 6.9 %; Neutrophils # 3.63 10^3/uL (1.8-7.7); Neutrophils % 53.6 %; Nucleated Red Blood Cells % 0 %; Platelet Count 197 10^3/cmm (130-400); Red Cell Distribution Width 11.9 % (12.1-15.1); White Blood Count 6.8 10^3/uL (4.0-10.0)
--- NOTE | 2022-07-29 19:28 | ED_ITS ---
HPI - Weakness General: Chief complaint: Weakness Stated complaint: Mini Strokes Time Seen by Provider: 07/29/22 18:44 History of Present Illness: Patient states over the last 3 weeks she has been having multiple episodes of TIA-like symptoms. She had one episode approximately 3 weeks ago where she was still alert and coherent but could not get a simple phrase out of her mouth. S he said this lasted for about 5 minutes and then resolved. Over the last several days she has had heaviness over her bilateral upper extremities and weakness. She went to her PCP today and they told her she need to get MRI and a carotid Doppler and that they was scheduled that but it would be several weeks. Patient's decided to come here to to get things done quicker. Patient has no history of TIA/CVA/vascular disease. Review of Systems 2 General: Reports: 10 or more systems reviewed and unremarkable except in HPI and below PFSH ED PFSH: Medical History Degenerative arthritis Hereditary hemochromatosis Hiatal hernia History of breast cancer Osteoporosis Type 2 diabetes mellitus Surgical History History of colonoscopy History of knee replacement (2014) Right total knee arthroplasty History of right mastectomy (2003) Right modified radical mastectomy Social History Smoking and tobacco status: never smoked Second hand smoke exposure: No Alcohol intake: never Desire information about alcohol rehabilitation?: No Substance/Drug Use: never Lives independently: Yes Physical Exam Const: COMMON NORMALS: no acute distress, average body habitus, patient orient ed x3, no limitations, healthy appearing, alert and well nourished HENMT: COMMON NORMALS: normocephalic, atraumatic, hearing grossly normal bilaterally, external ears normal, Normal external nose present and moist oral mucous membranes HEAD & SCALP: normocephalic and atraumatic NOSE: Normal external nose present EXTERNAL EAR: Yes external ears normal Eye: COMMON NORMALS: Equal, round and reactive pupils present, EOMs intact bilaterally, conjunctivae normal and no scleral icterus CONJUNCTIVA: Yes conjunctivae normal PUPIL: Yes Equal, round and reactive pupils present Neck/C-Spine: COMMON NORMALS: full ROM, no lymphadenopathy, supple, no meningeal signs, no JVD and Thyroid normal THYROID: Thyroid normal Lymph: LYMPHATIC: no lymphadenopathy noted Chest: COMMONS NORMALS: normal inspection of the chest and normal palpation of entire chest wall Resp: COMMON NORMALS: normal respiratory effort, No retractions, No use of accessory muscles and clear to auscultation bilaterally AUSCULTATION: clear to auscultation bilaterally Cardio: COMMON NORMALS: no JVD, regular rhythm, S1 normal heart sound present, S2 normal heart sound present, No gallops present (Cardio), No clicks present (Cardio), No murmurs present (Cardio) and No rub (Cardio) RHYTHM: regular rhythm HEART SOUNDS: S1 normal heart sound present and S2 normal heart sound present GI: COMMON NORMALS: Normal to inspection, nondistended, normoactive bowel sounds present, Soft to palpation, non-tender, No hepatosplenomegaly present and no masses PALPATION: Yes Soft to palpation and Yes No hepatosplenomegaly present : COMMON NORMALS: Yes no CVA tenderness BLADDER/KIDNEY EXAM: Yes no CVA tenderness Back/Pelvis: COMMON NORMALS: no CVA tenderness Neuro: COMMON NORMALS: patient oriented x3 SENSORIUM/ORIENTATION: Yes alert MENINGEAL SIGNS: Yes no meningeal signs Course Vital Signs: Vital signs: Vital Signs Temperature 98.1 F 07/29/22 18:34 Pulse Rate 74 07/29/22 22:06 Respiratory Rate 14 07/29/22 22:06 Blood Pressure 115/59 07/29/22 22:06 Pulse Oximetry 98 07/29/22 22:06 Oxygen Delivery Me thod Room Air 07/29/22 20:40 MDM - Weakness Medical Decision Making Patient presents to the ER with episodes of what seems to be TIAs in the past. Patient also had increased weakness to bilateral upper arms. Patient was seen by her PCP and told her to come in for further work-up and evaluation. Further work-up and evaluation showed lab work was essentially normal as well as head CT and carotid ultrasound. Patient will be discharged home to follow-up with her PCP and get her MRI that is already scheduled. Differential Diagnosis Unlikely acute myocardial infarction, anemia, hypoglycemia, hypothyroidism, rhabdomyolysis, sepsis or dehydration Medical Records I reviewed the patient's medical records. Lab Data I reviewed the patient's lab results. 07/29/22 19:00 07/29/22 19:00 Radiology Impressions Carotid Doppler Study 07/29/22 19:10 IMPRESSION: No carotid arterial stenosis. REFERENCES: SRU CRITERIA. The degree of internal carotid artery stenosis is based on criteria defined by the Society of Radiologists in Ultrasound (SRU). Normal is no stenosis. Mild is less than 50% stenosis. Moderate is 50-69% stenosis. Severe is greater than 69% stenosis to near occlusion. Near occlusion is a markedly narrowed lumen. Total occlusion is no detectable patent lumen. Head CT 07/29/22 19:10 IMPRESSION: No acute intracranial abnormality. Laboratory Results WBC 6.8 10^3/uL (4.0-10.0) 07/29/22 19:00 RBC 4.60 10^6/uL (4.1-5.3) 07/29/22 19:00 Hgb 14.6 g/dL (11.5-15.3) 07/29/22 19:00 Hct 43.8 % (37.0-47.0) 07/29/22 19: MCV 95.2 fl (81-99) 07/29/22 19: MCH 31.7 pg (28.0-34.0) 07/29/22 19:00 MCHC 33.3 g/dL (30.0-36.0) 07/29/22 19: RDW 11.9 % (12.1-15.1) L 07/29/22 19:00 Plt Count 197 10^3/cmm (130-400) 07/29/22 19:00 MPV 10.8 fL (7.4-10.4) H 07/29/22 19:00 Neut % (Auto) 53.6 % 07/29/22 19:00 Lymph % (Auto) 36.2 % 07/29/22 19:00 Gooding % (Auto) 6.9 % 07/29/22 19:00 Eos % (Auto) 2.4 % 07/29/22 19:00 Baso % (Auto) 0.6 % 07/29/22 19:00 Neut # (Auto) 3.63 10^3/uL (1.8-7.7) 07/29/22 19:00 Lymph # (Auto) 2.5 10^3/uL (0.8-4.8) 07/29/22 19:00 Gooding # (Auto) 0.5 10^3/uL (0.2-0.9) 07/29/22 19:00 Eos # (Auto) 0.2 10^3/uL (0.0-0.8) 07/29/22 19:00 Baso # (Auto) 0.0 10^3/uL (0.0-0.1) 07/29/22 19:00 Nucleated RBC % (auto) 0 % 07/29/22 19:00 Nucleated RBCs # 0.0 /100WBC 07/29/22 19:00 PT 12.70 SECONDS (12.1-14.9) 07/29/22 19:00 INR 0.93 (0.8-1.2) 07/29/22 19:00 Sodium 139 mmol/L (136-145) 07/29/22 19:00 Potassium 4.4 mmol/L (3.5-5.1) 07/29/22 19:00 Chloride 104 mmol/L (98-107) 07/29/22 19:00 Carbon Dioxide 25 mmol/L (22-29) 07/29/22 19:00 Anion Gap 14.4 (5-19) 07/29/22 19:00 BUN 21 mg/dL (8-23) 07/29/22 19:00 Creatinine 0.9 mg/dL (0.5-0.9) 07/29/22 19:00 GFR Calculation Not Reportable 07/29/22 19:00 Glucose 94 mg/dL (65-115) 07/29/22 19:00 Calculated Osmolality 291 mOsm/kg (285-295) 07/29/22 19:00 Calcium 9.3 mg/dL (8.5-10.5) 07/29/22 19:00 Total Bilirubin 0.4 mg/dL (0.15-1.2) 07/29/22 19:00 AST 17 U/L (0-32) 07/29/22 19:00 ALT 13 U/L (0-33) 07/29/22 19:00 Alkaline Phosphatase 69 U/L (35-105) 07/29/22 19:00 C-Reactive Protein 3.0 mg/L (0.0-4.9) 07/29/22 19:00 Total Protein 7.1 g/dL (6.6-8.7) 07/29/22 19:00 Albumin 4.3 g/dL (3.5-5.2) 07/29/22 19:00 Globulin 2.8 g/dL (1.3-4.6) 07/29/22 19:00 TSH 2.21 uIU/mL (0.27-4.20) 07/29/22 19:00 Discharge Plan Discharge Patient Disposition: Home Clinical Impression: Generalized weakness Condition: Stable Prescriptions: No Action lisinopril 10 mg tablet 10 mg PO DAILY gabapentin 100 mg capsule 100 mg PO DAILY Discharge Orders: Discharge ED (Routine); Ordered 07/29/22 Ordered By: Orlando Schilling Referrals: Milvia Peters NP [Primary Care Provider] - 1 week Patient Instructions: Weakness (Generalized) Activity Restrictions/Additional Instructions: Follow-up with your family doctor as needed. Continue with the MRI as previously planned. Coding Level of Care Code ED Ski Lift Attendant for Rodrigue Holbrook
[2022-07-29 19:40] LABS: INR 0.93 (0.8-1.2)
[2022-07-29 19:47] LABS: Alanine Aminotransferase 13 U/L (0-33); Albumin Level 4.3 g/dL (3.5-5.2); Alkaline Phosphatase 69 U/L (35-105); Anion Gap 14.4 (5-19); Aspartate Amino Transferase 17 U/L (0-32); Blood Urea Nitrogen 21 mg/dL (8-23); Calcium 9.3 mg/dL (8.5-10.5); Carbon Dioxide 25 mmol/L (22-29); Chloride 104 mmol/L (98-107); Globulin 2.8 g/dL (1.3-4.6); Glucose 94 mg/dL (65-115); Osmolality Calculated 291 mOsm/kg (285-295); Potassium 4.4 mmol/L (3.5-5.1); Sodium 139 mmol/L (136-145); Thyroid Stimulating Hormone 2.21 uIU/mL (0.27-4.20); Total Bilirubin 0.4 mg/dL (0.15-1.2); Total Protein 7.1 g/dL (6.6-8.7)
[2022-07-29 20:40] VITALS: BP 125/62; PULSE 77; RESP 15; O2SAT 96
[2022-07-29 22:06] VITALS: BP 115/59; PULSE 74; RESP 14; O2SAT 98
== END 2022-07-29 22:08 | disposition home or self-care (01) ==
PROVIDERS: Emergency Provider Emergency Medicine; PCP Nurse Practitioner Family
DX: R53.1 Weakness (principal); Z86.73 Personal history of transient ischemic attack (TIA), and cerebral infarction without residual deficits
CPT/HCPCS: 70450; 80053; 84443; 85025; 85610; 86140; 93880; 99285

== ENCOUNTER → 2022-07-30 12:25 | Day surgery (SDC) | payer MEDICARE, OTHER, SELFPAY ==
[2022-07-30 12:37] VITALS: BP 134/72; PULSE 85; RESP 18; TEMP 35.7; O2SAT 100
[2022-07-30 12:55] VITALS: BP 100/69
--- NOTE | 2022-07-30 13:11 | PC.NURSE ---
Pt to GI infusions for therapeutic phlebotomy. Labs from 07/29/22 noted Hg 14 and Hct 43. Therapeuitc phlebotomy drawn as ordered. 250 mL removed without difficulty. No reaction noted.
== END ==
PROVIDERS: PCP Nurse Practitioner Family; Visit Provider Nurse Practitioner Family
DX: E83.119 Hemochromatosis, unspecified (principal); Z79.899 Other long term (current) drug therapy
CPT/HCPCS: 99195

== ENCOUNTER → 2022-08-14 09:10 | Outpatient (BNVA) | payer MEDICARE, OTHER, SELFPAY | PROVIDERS: PCP Nurse Practitioner Family; Visit Provider Internal Medicine Cardiovascular Disease | DX: R07.9 Chest pain, unspecified (principal); R06.02 Shortness of breath; R42 Dizziness and giddiness; I10 Essential (primary) hypertension; E11.9 Type 2 diabetes mellitus without complications; E83.110 Hereditary hemochromatosis | CPT/HCPCS: 93005; 99204 ==

== ENCOUNTER 2022-09-17 07:52 | Outpatient (CLI) | payer MEDICARE, OTHER, SELFPAY ==
--- NOTE | 2022-09-17 08:09 | ECG_ITS ---
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 Interpretive Statements NAME OF STUDY: EXERCISE SESTAMIBI STRESS TEST INDICATION: Dyspnea on exertion Baseline blood pressure of 157/83 mm Hg, heart rate 56 beats per minute and oxygen saturation of 91%. EKG showed sinus rhythm, normal axis with normal ST-Ts. The patient exercised for 3 minutes 16 seconds on a standard Mark protocol. Patient attained a maximum heart rate of 125 beats per minute(89% of the maximum predicted heart rate) with a blood pressure at the peak exercise of 153/87 mm Hg. The EKG at the peak exercise revealed sinus tachycardia with no significant ST-T wave changes. Patient did not have any chest pain or any significant arrhythmis with the exercise During the recovery phase, there were no new changes. Blood pressure at the end of the recovery phase was 181/96 mm Hg with a heart rate of 83 beats per minute. CONCLUSION: 1. Normal EKG response to treadmill exercise 2. No exercise-induced chest pain or cardiac arrhythmia 3. Excellent exercise tolerance, attained a maximum of 7 METs. 4. Baseline hypertension with normal response to exercise. 5. Perfusion scan will be documented separately. Electronically Signed On 09-18-2022 16:53:22 CDT by Nuvia Nava M.D. [email or web address]
--- NOTE | 2022-09-17 08:09 | NMCV_ITS ---
NM anusha perf SPECT r/s* [id number] Jenna Weiss Age: 81 Gender: F : 1940 Exam Date: 09/17/2022 09:09 Ordering Phys: Nuvia Nava MD ([email or web address]) Technologist: CARLOS Herron Exam Location: [facility] Indications: SHORTNESS OF BREATH STRESS TEST Please see separate stress test report in [facility] for full findings IMAGE PROTOCOL Rest/Stress 1 Exercise Day Radiopharmaceutical Dose (mCi) Administration Site Administered by Rest: Tc-99m 10.8 IV CARLOS Herron Sestamibi Stress:Tc-99m 32.5 IV CARLOS Moreno Sestamibi Rest: 17-Sep-2022 60 Discovery 630 Stress: 17-Sep-2022 15 Discovery 630 Radiopharmaceutical was injected at 88 % maximum heart rate. Images obtained in supine and prone position. SPECT RESULTS Technical Quality: Excellent Raw Data Analysis: Normal Image Corrections: No attenuation or motion correction applied Summed Stress Score: 0 Summed Rest Score: 4 Summed Difference Score: 0 PERFUSION FINDINGS SPECT images demonstrate homogeneous tracer distribution throughout the myocardium. FUNCTIONAL RESULTS (calculated via Gated SPECT) Stress Image LV EF (%): 96 Stress EDV (mL):49 TID: 0.95 Stress ESV (mL):2 FUNCTIONAL FINDINGS: The left ventricle is normal in size. Transient Ischemia Dilatation of 0.95. The left ventricular ejection fraction is normal with a value of 96%. There is hyperdynamic left ventricular wall thickening. IMPRESSIONS 1. Myocardial perfusion imaging is normal. 2. The left ventricular ejection fraction is hyperdynamic with a value of 96% without regional wall motion abnormalities. 3. EKG portion of the study will be reported separately. 4. Scan indicates low risk for cardiac events. Nuvia Nava MD (Electronically Signed) Final Date: 17 September 2022 17:15 S
[2022-09-17 08:21] VITALS: BMI 26.6
[2022-09-17 10:21] VITALS: BP 156/88; PULSE 86
== END 2022-09-17 07:53 | disposition home or self-care (01) ==
LOC: CDL 07:53
PROVIDERS: PCP Nurse Practitioner Family; Visit Provider Internal Medicine Cardiovascular Disease
DX: R06.02 Shortness of breath (principal)
CPT/HCPCS: 36415; 78452; 93017; 96374; A9500

== ENCOUNTER → 2022-09-18 13:50 | Outpatient (BNVA) | payer MEDICARE, OTHER, SELFPAY | PROVIDERS: PCP Nurse Practitioner Family; Visit Provider Podiatrist Foot & Ankle Surgery | DX: M20.41 Other hammer toe(s) (acquired), right foot (principal); M20.42 Other hammer toe(s) (acquired), left foot; I73.9 Peripheral vascular disease, unspecified; L60.3 Nail dystrophy; E11.42 Type 2 diabetes mellitus with diabetic polyneuropathy | CPT/HCPCS: 11721 ==

== ENCOUNTER 2022-12-13 09:51 | Oncology outpatient (recurring) (ONCR) | payer MEDICARE, OTHER, SELFPAY ==
[2022-11-27 13:23] LABS: Basophils % 0.6 %; Eosinophils # 0.1 10^3/uL (0.0-0.8); Eosinophils % 1.4 %; Hematocrit 44.6 % (36-47); Lymphocytes # 1.6 10^3/uL (0.8-4.8); Lymphocytes % 31.3 %; Mean Corpuscular HGB Conc 33.9 g/dL (30-55); Mean Corpuscular Hemoglobin 32.3 pg (27-33); Mean Corpuscular Volume 95.3 fl (85-98); Monocytes # 0.4 10^3/uL (0.2-0.9); Monocytes % 7.2 %; Neutrophils # 3.07 10^3/uL (1.8-7.7); Neutrophils % 59.3 %; Nucleated Red Blood Cells % 0 %; Platelet Count 141 10^3/cmm (157-399); Red Blood Count 4.68 10^6/uL (3.85-5.65); Red Cell Distribution Width 12.2 % (12.1-15.1); White Blood Count 5.17 10^3/uL (3.29-11.43)
[2022-11-27 13:33] LABS: Erythrocyte Sedimentation Rate 12 mm/hr (0-15)
[2022-11-27 13:50] LABS: Alanine Aminotransferase 14 U/L (0-33); Albumin Level 4.5 g/dL (3.5-5.2); Alkaline Phosphatase 68 U/L (35-105); Anion Gap 12.3 (5-19); Aspartate Amino Transferase 18 U/L (0-32); Blood Urea Nitrogen 16 mg/dL (8-23); Calcium 9.6 mg/dL (8.5-10.5); Carbon Dioxide 27 mmol/L (22-29); Chloride 106 mmol/L (98-107); Cortisol Random 7.83 ug/dL (2.47-19.5); Globulin 2.7 g/dL (1.3-4.6); Glucose 89 mg/dL (65-115); Lactate Dehydrogenase 163 U/L (135-214); Osmolality Calculated 293 mOsm/kg (285-295); Potassium 4.3 mmol/L (3.5-5.1); Sodium 141 mmol/L (136-145); Thyroid Stimulating Hormone 1.93 uIU/mL (0.27-4.20); Total Bilirubin 0.8 mg/dL (0.15-1.2); Total Protein 7.2 g/dL (6.6-8.7)
[2022-11-27 15:35] LABS: Ferritin 107 ng/mL (15-150); Iron 169 ug/dL (37-145); Percent Saturation 76.8 % (20-50); Total Iron Binding Capacity 220 mcg/dl; Unsaturated Iron Binding 51 ug/dL (112-347); Vitamin B12 390 pg/mL (232-1245)
[2022-11-27 23:06] LABS: LAB Peripheral Smear Sent for Review
[2022-12-13 10:00] VITALS: BP 121/61; PULSE 65; RESP 16; TEMP 35.7; O2SAT 96
[2022-12-13 10:49] VITALS: BP 146/83; PULSE 68; RESP 16; TEMP 35.8; O2SAT 99
[2022-12-17 14:54] LABS: Lyme AB Screen <0.90 index
[2022-12-18 16:50] LABS: RMSF IGG NOT DETECTED; RMSF IGM NOT DETECTED
[2022-12-19 17:34] LABS: E. Chaffeensis AB IGG <1:64; E. Chaffeensis AB IGM <1:20
[2022-12-24 16:22] LABS: Miscellaneous Test SEE COMMENTS
== END 2022-12-18 23:59 | disposition home or self-care (01) ==
PROVIDERS: PCP Nurse Practitioner Family; Visit Provider Internal Medicine Medical Oncology
DX: C50.111 Malignant neoplasm of central portion of right female breast (principal); R29.898 Other symptoms and signs involving the musculoskeletal system; E83.119 Hemochromatosis, unspecified; E11.42 Type 2 diabetes mellitus with diabetic polyneuropathy; I10 Essential (primary) hypertension; E78.5 Hyperlipidemia, unspecified; R06.02 Shortness of breath; R42 Dizziness and giddiness
CPT/HCPCS: 11721; 36415; 80053; 82533; 82607; 82728; 83516; 83519; 83540; 83550; 83615; 84443; 85025; 85651; 86140; 86255; 86618; 86666; 86757; 99195; 99214; 99215

== ENCOUNTER 2023-01-07 14:06 | Oncology outpatient (recurring) (ONCR) | payer MEDICARE, OTHER, SELFPAY ==
[2023-01-07 14:32] VITALS: BP 137/68; PULSE 76; RESP 16; TEMP 36.6; O2SAT 97
[2023-01-07 14:52] LABS: Basophils % 0.2 %; Eosinophils # 0.1 10^3/uL (0.0-0.8); Eosinophils % 2.3 %; Hematocrit 40.8 % (36-47); Lymphocytes # 1.8 10^3/uL (0.8-4.8); Lymphocytes % 34.7 %; Mean Corpuscular HGB Conc 33.8 g/dL (30-55); Mean Corpuscular Hemoglobin 32.7 pg (27-33); Mean Corpuscular Volume 96.7 fl (85-98); Mean Platelet Volume 11.4 fL (7.4-10.4); Monocytes # 0.3 10^3/uL (0.2-0.9); Neutrophils # 2.99 10^3/uL (1.8-7.7); Neutrophils % 56.4 %; Nucleated Red Blood Cells % 0 %; Platelet Count 135 10^3/cmm (157-399); Red Blood Count 4.22 10^6/uL (3.85-5.65); Red Cell Distribution Width 12.5 % (12.1-15.1)
[2023-01-07 15:07] LABS: Alanine Aminotransferase 14 U/L (0-33); Alkaline Phosphatase 80 U/L (35-105); Anion Gap 13.2 (5-19); Aspartate Amino Transferase 17 U/L (0-32); Blood Urea Nitrogen 17 mg/dL (8-23); Calcium 9.2 mg/dL (8.5-10.5); Carbon Dioxide 27 mmol/L (22-29); Chloride 105 mmol/L (98-107); Globulin 2.6 g/dL (1.3-4.6); Glucose 157 mg/dL (65-115); Osmolality Calculated 297 mOsm/kg (285-295); Potassium 4.2 mmol/L (3.5-5.1); Sodium 141 mmol/L (136-145); Total Bilirubin 0.6 mg/dL (0.15-1.2); Total Protein 6.6 g/dL (6.6-8.7)
[2023-01-07 17:14] LABS: Erythrocyte Sedimentation Rate 3 mm/hr (0-15)
[2023-01-07 17:18] LABS: Creatine Phosphokinase 75 U/L (26-192)
[2023-01-16 18:36] LABS: Acetylcholine Receptor Block <15 (<15)
[2023-01-19 17:30] LABS: Acetylcholine Recept Modulatin 7
== END 2023-01-17 23:59 | disposition home or self-care (01) ==
LOC: ONCMED 14:06
PROVIDERS: PCP Nurse Practitioner Family; Visit Provider Internal Medicine Medical Oncology
DX: I73.9 Peripheral vascular disease, unspecified (principal); E83.110 Hereditary hemochromatosis; L60.3 Nail dystrophy; E11.42 Type 2 diabetes mellitus with diabetic polyneuropathy; M20.41 Other hammer toe(s) (acquired), right foot; M20.42 Other hammer toe(s) (acquired), left foot; R53.83 Other fatigue; R53.1 Weakness; Z79.899 Other long term (current) drug therapy; C50.111 Malignant neoplasm of central portion of right female breast
CPT/HCPCS: 36415; 80053; 82550; 83516; 83519; 85025; 85651; 86140; 99214

== ENCOUNTER 2023-02-15 13:15 | Outpatient (CLI) | payer MEDICARE, OTHER, SELFPAY ==
--- NOTE | 2023-02-15 13:45 | USCV_ITS ---
Jenna Weiss Age: 82 Gender: F : 1940 Exam Date: 02/15/2023 14:07 Ordering Phys: Noam Lopez MD Technologist: Jossue Rodriguez Exam Location: [facility] [place] Indication: heart murmur BP: 131 / 83 HR: 76 Rhythm: Sinus Technical Quality: Adequate MEASUREMENTS (Male / Female) Normal Values 2D ECHO LVOT Diameter 2.0 cm LV Ejection Fraction MOD 2C 61.2 % LV Ejection Fraction 2C AL 61.0 % LA Diameter 3.0 cm LA Width 2.6 cm LA Height 4.9 cm RA Width 3.0 cm RA Height 3.9 cm Aorta at Sinotubular Diameter 2.1 cm IVC Diameter 1.3 cm M-MODE Aortic Annulus Diameter 2.2 cm LA Ao Ratio MM 1.4 MV E Point Septal Separation 0.7 cm DOPPLER AV Peak Velocity 100.0 cm/s LVOT Peak Velocity 78.0 cm/s AV Area Cont Eq vti 2.5 cm squared AV Area Cont Eq pk 2.5 cm squared MV Peak Velocity 106.0 cm/s MV Area PHT 4.1 cm squared Mitral E to A Ratio 0.8 MV E' Velocity 36.5 cm/s Mitral E to MV E' Ratio 13.3 Mitral E to LV E' Lateral Ratio 16.0 Mitral E to LV E' Septal Ratio 11.5 TR Peak Velocity 360.2 cm/s TR Peak Gradient 51.9 mmHg TR Mean Velocity 280.5 cm/s TR Mean Gradient 33.5 mmHg TR Velocity Time Integral 85.3 cm Right Atrial Pressure 3.0 mmHg Pulmonary Artery Systolic Pressu 54.9 mmHg PV Peak Velocity 73.0 cm/s RV Acceleration Time 0.1 s RV Ejection Time 0.3 s RV AcT/ET 0.2 FINDINGS Left Ventricle Left ventricle is normal in size. LV systolic function is normal with EF of 55 to 60%. No regional wall motion abnormalities are seen. Grade 1 diastolic dysfunction. Right Ventricle Normal in size and function Right Atrium Normal in size Left Atrium Normal in size Mitral Valve Mild mitral regurgitation. Aortic Valve Grossly normal. No significant stenosis or regurgitation. Tricuspid Valve Mild tricuspid regurgitation. Insufficient TR jet to calculate RVSP. Pulmonic Valve Not well visualized Pericardium Normal Aorta Not well visualized IVC Appears to be normal CONCLUSIONS LV systolic function is normal with EF of 55 to 60%. Grade 1 diastolic dysfunction. Mild mitral regurgitation Mild tricuspid regurgitation Compared to prior echocardiogram from 2012, no significant changes are seen Casimiro Nieto MD (Electronically Signed) Final Date: 23 February 2023 14:48 S
== END 2023-02-15 13:16 | disposition home or self-care (01) ==
LOC: RAD 13:16
PROVIDERS: PCP Nurse Practitioner Family; Visit Provider Internal Medicine Medical Oncology
DX: R01.1 Cardiac murmur, unspecified (principal); R53.1 Weakness; R53.83 Other fatigue; I08.1 Rheumatic disorders of both mitral and tricuspid valves
CPT/HCPCS: 93306

== ENCOUNTER → 2023-02-20 10:50 | Outpatient (BNVA) | payer MEDICARE, OTHER, SELFPAY | PROVIDERS: PCP Nurse Practitioner Family; Visit Provider Podiatrist Foot & Ankle Surgery | DX: E11.8 Type 2 diabetes mellitus with unspecified complications (principal); E11.42 Type 2 diabetes mellitus with diabetic polyneuropathy; M20.41 Other hammer toe(s) (acquired), right foot; M20.42 Other hammer toe(s) (acquired), left foot; I73.9 Peripheral vascular disease, unspecified; L60.3 Nail dystrophy | CPT/HCPCS: 11721 ==

== ENCOUNTER → 2023-08-06 09:46 | Outpatient (BNVA) | payer MEDICARE, OTHER, SELFPAY | PROVIDERS: PCP Nurse Practitioner Family; Visit Provider Podiatrist Foot & Ankle Surgery | DX: E11.42 Type 2 diabetes mellitus with diabetic polyneuropathy (principal); M20.41 Other hammer toe(s) (acquired), right foot; M20.42 Other hammer toe(s) (acquired), left foot; I73.9 Peripheral vascular disease, unspecified; L60.3 Nail dystrophy | CPT/HCPCS: 11721 ==

== ENCOUNTER → 2023-11-19 10:26 | Outpatient (BNVA) | payer MEDICARE, OTHER, SELFPAY | PROVIDERS: PCP Nurse Practitioner Family; Visit Provider Podiatrist Foot & Ankle Surgery | DX: E11.42 Type 2 diabetes mellitus with diabetic polyneuropathy (principal); I73.9 Peripheral vascular disease, unspecified; L60.3 Nail dystrophy | CPT/HCPCS: 11721 ==

== ENCOUNTER 2024-08-17 09:45 | Oncology outpatient (recurring) (ONCR) | payer MEDICARE, OTHER, SELFPAY ==
[2024-07-28 14:06] LABS: Basophils % 0.6 %; Eosinophils # 0.2 10^3/uL (0.0-0.8); Eosinophils % 2.8 %; Lymphocytes # 1.9 10^3/uL (0.8-4.8); Lymphocytes % 29.7 %; Mean Corpuscular HGB Conc 33.6 g/dL (30-55); Mean Corpuscular Hemoglobin 32.2 pg (27-33); Mean Corpuscular Volume 95.9 fl (85-98); Mean Platelet Volume 10.7 fL (7.4-10.4); Monocytes # 0.4 10^3/uL (0.2-0.9); Monocytes % 6.6 %; Neutrophils # 3.89 10^3/uL (1.8-7.7); Neutrophils % 60.1 %; Nucleated Red Blood Cells % 0 %; Platelet Count 136 10^3/cmm (157-399); Red Blood Count 4.59 10^6/uL (3.85-5.65); Red Cell Distribution Width 12.4 % (12.1-15.1); White Blood Count 6.47 10^3/uL (3.29-11.43)
[2024-07-28 14:22] LABS: Alanine Aminotransferase 17 U/L (0-33); Albumin Level 4.3 g/dL (3.5-5.2); Alkaline Phosphatase 98 U/L (35-105); Anion Gap 16.5 (5-19); Aspartate Amino Transferase 21 U/L (0-32); Blood Urea Nitrogen 15 mg/dL (8-23); Calcium 9.3 mg/dL (8.5-10.5); Carbon Dioxide 24 mmol/L (22-29); Chloride 104 mmol/L (98-107); Ferritin 273 ng/mL (15-150); Globulin 2.8 g/dL (1.3-4.6); Glucose 99 mg/dL (65-115); Osmolality Calculated 291 mOsm/kg (285-295); Potassium 4.5 mmol/L (3.5-5.1); Sodium 140 mmol/L (136-145); Total Bilirubin 0.6 mg/dL (0.15-1.2); Total Protein 7.1 g/dL (6.6-8.7)
--- NOTE | 2024-07-31 13:00 | PETR_ITS ---
PROCEDURE INFORMATION: Exam: PET/CT Skull Base to Mid-thigh Exam date and time: 07/31/2024 2:10 PM Age: 83 years old Clinical indication: Condition or disease; Primary cancer: Malignant neoplasm of right breast; Initial oncological staging assessment LABS AND CLINICAL REPORTS: Glucose: 111 mg/dl Treatment strategy for malignancy (PET staging): Initial Staging (PI) TECHNIQUE: Imaging protocol: Following at least four-hour fasting and following the injection of radiopharmaceutical, low dose CT images were obtained. Then, PET images were obtained. Attenuation corrected images were constructed using the CT scan. Fused images of PET and CT were reviewed. The standardized uptake values (SUV) reported below are maximum values within a region of interest, expressed in gm/ml. Exam includes orbital meatal line to mid-thigh. SUV normalization method: BodyWeight Radiopharmaceutical: 11.08 mCi F-18 FDG (Fluorodeoxyglucose), IV. Time of imaging post radiopharmaceutical administration: 49 minutes Injection site: LAC COMPARISON: MR cervical spin wo con* [id number] 10/05/2022 4:05 PM, CT abdomen and pelvis 07/07/2024 FINDINGS: Brain: Visualized brain has normal physiologic uptake. Pharynx: No abnormal uptake. Larynx: No abnormal uptake. Lungs, pleura and trachea: No abnormal uptake. Mild dependent streaky density in the lungs is consistent with atelectasis or scarring. A right lower lobe calcified granuloma is present. Heart: Normal physiologic uptake. Mediastinal space: No abnormal uptake. Liver: No abnormal uptake. Gallbladder and biliary ducts: No abnormal uptake. Cholecystectomy clips are present. Pancreas: No abnormal uptake. Spleen: No abnormal uptake. Adrenal glands: No abnormal uptake. Kidneys and ureters: Normal physiologic uptake. Stomach and bowel: No abnormal uptake. There is evidence of a gas and fluid filled probable posteriorly exophytic proximal gastric diverticulum on CT series 202, image 107. Vasculature: No abnormal uptake. Multifocal regions of atherosclerotic calcification are identified. Lymph nodes: Uptake within inferior right paratracheal/precarinal lymph nodes is identified, SUV max 3.5 on series 202, image 77 within lymph nodes measuring up to 8 mm in short axis dimension. Small benign-appearing non radiotracer avid calcified right hilar and subcarinal lymph nodes are present. Skeleton: Multifocal regions of osseous abnormal uptake in areas of ill-defined lucency are noted. Examples: T7 vertebral body, SUV max 3.8; T1 vertebral body, SUV max 3.8; posteromedial left 7th rib, SUV max 6.6 on image 82; in the mid to superior aspect of the L2 vertebral body where there is a similar moderate to severe compression fracture with underlying ill-defined lucency, SUV max 4.8 on image 147; in the region of slightly lobulated expansile lucency in the S1 vertebral body on the left measuring approximately 5.4 x 3.0 cm on image 187, SUV max 4.8; within areas of mottled lucency throughout the left iliac bone, SUV max 5.9 on image 199; left acetabular roof, SUV max 4.7 on image 204; left pubic bone near the symphysis pubis, SUV max 4.7 on image 224; proximal left femoral shaft, SUV max 5.4 on image 254. Soft tissues: Postoperative changes of right mastectomy are noted. Surgical clips in the right subpectoral and axillary regions are present. Uptake adjacent to surgical clips in the right subpectoral space is identified, SUV max 8.2 on series 301, image 77. This region of uptake correlates with an ovoid area of soft tissue density measuring up to 1.7 cm in greatest transverse dimension on series 202, image 81. METRICS: Mediastinal blood pool: SUV max 3.2, SUV mean 2.7 Liver uptake: SUV max 3.5, SUV mean 3.1 PET/PET skull to thigh SUBS [id number] IMPRESSION: 1. Elevated uptake is identified in the soft tissue density nodule adjacent to surgical clips in the right subpectoral region concerning for residual or recurrent malignancy. 2. 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 3. Mild uptake within mediastinal lymph nodes is noted, which can be inflammatory, infectious or malignant in etiology. 4. Additional nonurgent findings as detailed above.
[2024-08-17 09:41] LABS: Basophils % 0.3 %; Eosinophils # 0.2 10^3/uL (0.0-0.8); Eosinophils % 2.5 %; Hematocrit 40.3 % (36-47); Lymphocytes # 1.3 10^3/uL (0.8-4.8); Lymphocytes % 22.4 %; Mean Corpuscular Hemoglobin 32.8 pg (27-33); Mean Corpuscular Volume 96.4 fl (85-98); Mean Platelet Volume 10.6 fL (7.4-10.4); Monocytes # 0.4 10^3/uL (0.2-0.9); Monocytes % 6.5 %; Neutrophils # 4.05 10^3/uL (1.8-7.7); Neutrophils % 67.8 %; Nucleated Red Blood Cells % 0 %; Platelet Count 132 10^3/cmm (157-399); Red Blood Count 4.18 10^6/uL (3.85-5.65); Red Cell Distribution Width 12.8 % (12.1-15.1); White Blood Count 5.98 10^3/uL (3.29-11.43)
[2024-08-17 09:56] LABS: Alanine Aminotransferase 14 U/L (0-33); Alkaline Phosphatase 101 U/L (35-105); Anion Gap 17.5 (5-19); Aspartate Amino Transferase 20 U/L (0-32); Blood Urea Nitrogen 20 mg/dL (8-23); Carbon Dioxide 24 mmol/L (22-29); Chloride 103 mmol/L (98-107); Creatinine Clr Calc Pharmacy 40.7143; Ferritin 342 ng/mL (15-150); Globulin 2.8 g/dL (1.3-4.6); Glucose 135 mg/dL (65-115); Osmolality Calculated 295 mOsm/kg (285-295); Potassium 4.5 mmol/L (3.5-5.1); Sodium 140 mmol/L (136-145); Total Bilirubin 0.6 mg/dL (0.15-1.2); Total Protein 6.8 g/dL (6.6-8.7)
--- NOTE | 2024-08-17 12:59 | N.ONRAD NP_ITS ---
Radiation Oncology New Patient Visit Patient: Jenna Weiss MR#: [id number] : 1940> Age: 83> Sex: Female> Dictated by: Oswald Banks DO/MARIBEL Date of Service: 08/17/2024 Referring Physician(s) : ISABELL Diagnosis: E83.110 - hereditary hemochromatosis, Diagnosed 12/27/2014 (active), Z85.3 - personal history of malignant neoplasm of breast, Diagnosed 12/27/2014 (active) and C50.111 - malignant neoplasm of central portion of right female breast, Diagnosed 06/03/2012 (in remission), stage iiia, t2, pn2a, m0, g2. 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 Chief Complaint / History of Present Illness: This is a pleasant 83-year-old female being seen this date for bony metastasis pain. She was originally diagnosed with breast cancer in 2003 and underwent mastectomy and 5 years of tamoxifen. Patient in June of this year was seen for uterine carcinoma. 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 Surgical margins were negative as well as 0 out of 2 pelvic lymph nodes positive. Workup including PET scan on 07/31/20172024 showed 6 right subpectoral mass uptake of 8.2. She underwent MRI at [facility] on 07/07/2024. There was multiple enhancing marrow lesions most prominently at L2 with an associated pathologic fracture approximately 75%. There was uptake in the left sacrum and mild encroachment of the left S1-S2 neural foramina. There is also patchy smaller metastatic lesions in the right sacrum, bilateral iliac wings, T11, T12, L1, L3, L4, and L5. There was no epidural tumor burden associated with the findings. L2 lytic lesion biopsy on 07/24/2024 return metastatic carcinoma consistent with mammary area primary that was lobular carcinoma. PET/CT on 07/31/2024 noted in L2 vertebral body with uptake of 4.8. There was soft tissue density nodule adjacent to surgical clips in the right subpectoral region measuring 8.2. There was a lobular expansile lucency in the L1 vertebral body on the left measuring 5.4 x 5 3.0 cm (4.8) mottled lucency throughout the left iliac bone (5.9) left acetabular roof (4.7) left pubic bone near the symphysis (4.7) proximal left femoral shaft (5.4) Current Medications: - Last Reconciled 08/17/24 by Radha Johnson MA fexofenadine (Brit Allergy) 60 mg PO DAILY PRN hydrocodone-acetaminophen 7.5-325 mg tabs PO PRN letrozole 2.5 mg PO DAILY sennosides-docusate sodium 8.6-50 mg (Stool Softener-Laxative) PO PRN Allergies: No Known Allergies Medical History: Medical History HTN (hypertension) Osteoporosis Degenerative arthritis Hereditary hemochromatosis Type 2 diabetes mellitus History of breast cancer Hiatal hernia Surgical History: Reviewed 08/17/24 @ 09:35 by Radha Johnson MA) History of cholecystectomy S/P cholecystectomy History of right mastectomy (2003) Right modified radical mastectomy History of knee replacement (2014) Right total knee arthroplasty History of colonoscopy [facility]-06/29/2024 GRADE 1 6/13MM 46% Family History: Reviewed 08/17/24 @ 09:35 by Radha Johnson MA) Brother Cancer Diabetes Daughter Cancer Father Diabetes Social History: Smoking and tobacco/nicotine status: former use of tobacco/nicotine Quit status (tobacco/nicotine): has quit using Year quit tobacco: 1972 Former quit date comment: smoked 10 years Second hand smoke exposure: No Alcohol intake: never Substance/Drug Use: never Lives independently: Yes Dietary Habits Caffeine: Yes Current Complaints / Review of Systems: . Vital Signs: Performed on 08/17/2024 10:06 AM BMI - 28.622 kg/m2 (high), Height - 65 in, Weight - 172 lbs, Temperature - 98.9 f, Pulse - 65 /min, Respiration - 17 /min, O2 Sat - 96 %, Pain - 5, Fatigue - 4 and BP - 148/ 89 mm(hg)(high/). Physical Exam: Elderly female. No acute distress Neck is supple no lymphadenopathy Lungs clear to auscultation no wheezing or crackles Heart is regular rhythm no murmur Abdomen is soft and nontender not distended Extremities no edema VERTEBRAL EXAM- NO PALPABLE TENDERNESS, REPORTED TENDERNESS LEFT SACRUM /HIP Performance Status: KPS 90 Pathology: Primary, e83.110 - hereditary hemochromatosis, Diagnosed 12/27/2014 (active) , Primary, z85.3 - personal history of malignant neoplasm of breast, Diagnosed 12/27/2014 (active) , Primary, c50.111 - malignant neoplasm of central portion of right female breast, Diagnosed 06/03/2012 (in remission) stage iiia, t2, pn2a, m0, g2, Secondary, e11.9 - type 2 diabetes mellitus without complications, Diagnosed 02/18/1799 (active) and Secondary, m81.0 - age-related osteoporosis without current pathological fracture, Diagnosed 02/18/1799 (active) . ABOVE Lab: Imaging: See HPI Impression: Bone mets of breast origin Symptomatic tenderness in the sacrum and left hip areas. 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 Recommend treatment of L2 and sacrum left iliac wing. Patient underwent CT simulation today without difficulty. Plan is 2000 cGy in 5 fractions to both L2 and sacral left iliac wing areas as defined by PET/CT. PET CT fusion . Patient signed informed consent under her own free well after all questions answered. Signed by: 08/17/2024 12:57:49 PM <<Signature on File>> Time spent with patient/family: 45 minutes CPT Code: CPT Code:
== END 2024-08-17 23:59 | disposition home or self-care (01) ==
PROVIDERS: PCP Nurse Practitioner Family; Visit Provider Internal Medicine Medical Oncology
DX: Z53.9 Procedure and treatment not carried out, unspecified reason; Z51.0 Encounter for antineoplastic radiation therapy; C79.51 Secondary malignant neoplasm of bone; Z85.3 Personal history of malignant neoplasm of breast
CPT/HCPCS: 36415; 77290; 77334; 78815; 80053; 82728; 85025; 99205; 99214; 99215; A9552

== ENCOUNTER 2024-08-26 12:00 | Oncology outpatient (recurring) (ONCR) | payer MEDICARE, OTHER, SELFPAY ==
--- NOTE | 2024-08-25 15:27 | ONCRAD TMN_ITS ---
Radiation Oncology Weekly Treatment Management Patient: Jenna Weiss MR#: [id number] : 1940 Attending Physician: Dr. Christophe Mirnada Date of Service: 08/25/2024 Referring Physician(s) : Diagnosis: C79.51 - Secondary malignant neoplasm of bone, Diagnosed 07/31/2024 (Active) E83.110 - Hereditary hemochromatosis, Diagnosed 12/27/2014 (Active) Z85.3 - Personal history of malignant neoplasm of breast, Diagnosed 12/27/2014 (Active) C50.111 - Malignant neoplasm of central portion of right female breast, Diagnosed 06/03/2012 (In Remission) Stage IIIA, T2, pN2a, M0, G2 Radiotherapy to date: Course: L2, Treatment Site: [address], Ref. ID: [id number], Energy: 15X, Dose/Fx (cGy): 400, #Fx: 2 / 5, Dose Correction (cGy): 0, Total Dose Delivered (cGy): 800, Start Date: 08/24/2024, Elapsed Days: 1 Course: L2, Treatment Site: Sacrum, Ref. ID: [email or web address], Energy: 15X, Dose/Fx (cGy): 400, #Fx: 2 / 5, Dose Correction (cGy): 0, Total Dose Delivered (cGy): 800, Start Date: 08/24/2024, Elapsed Days: 1 Reason for visit: The patient is being seen today as part of their regularly scheduled weekly on treatment visits to assess for acute toxicities from radiotherapy. Review of Systems: Lt hip pain is same, no improvement as yet. Now on HC/APAP 10/325 mg. Helping but does not last 6 hrs as prescribed. Stools regular with stool softener. Here now with new 1 month old great-grandson. Vital Signs: Performed on 08/25/2024 3:13 PM BMI - 20.918 kg/m2, Height - 66 in, Weight - 129.6 lbs, Temperature - 96.7 f, Pulse - 84 /min, Respiration - 17 /min, O2 Sat - 97 %, Pain - 5, Fatigue - 0 and BP - 148/ 83 mm(hg)(high/). Physical Exam: omitted Imaging: Radiation therapy imaging related to accurate target localization (i.e. KV, MV and CBCT) was reviewed. Appropriate changes, if any, were made to ensure treatment accuracy. Plan: Good tolerance of treatment. Ok to take HC/APAP every 4 to 6 hrs. Continue treatment as planned. Signed by: Dr. Christophe Miranda 08/25/2024 3:25:57 PM
[2024-08-26 12:05] LABS: Hematocrit 40.3 % (36-47); Hemoglobin 13.80 g/dL (11.27-16.99); Mean Corpuscular HGB Conc 34.2 g/dL (30-55); Mean Corpuscular Hemoglobin 33.5 pg (27-33); Mean Corpuscular Volume 97.8 fl (85-98); Nucleated Red Blood Cells % 0 %; Platelet Count 146 10^3/cmm (157-399); Red Blood Count 4.12 10^6/uL (3.85-5.65); White Blood Count 6.80 10^3/uL (3.29-11.43)
[2024-08-26 12:18] LABS: Alanine Aminotransferase 13 U/L (0-33); Albumin Level 4.1 g/dL (3.5-5.2); Alkaline Phosphatase 123 U/L (35-105); Anion Gap 17.4 (5-19); Aspartate Amino Transferase 25 U/L (0-32); Blood Urea Nitrogen 15 mg/dL (8-23); Calcium 9.2 mg/dL (8.5-10.5); Carbon Dioxide 25 mmol/L (22-29); Chloride 97 mmol/L (98-107); Globulin 2.8 g/dL (1.3-4.6); Glucose 225 mg/dL (65-115); Osmolality Calculated 288 mOsm/kg (285-295); Potassium 4.4 mmol/L (3.5-5.1); Sodium 135 mmol/L (136-145); Total Protein 6.9 g/dL (6.6-8.7)
[2024-08-26 14:40] LABS: Ferritin 319 ng/mL (15-150)
[2024-08-26] MEDS: denosumab 120 mg SDV SUBCUT (15:10)
== END 2024-08-26 23:59 | disposition home or self-care (01) ==
PROVIDERS: PCP Nurse Practitioner Family; Visit Provider Nurse Practitioner Family
DX: Z53.9 Procedure and treatment not carried out, unspecified reason; Z51.0 Encounter for antineoplastic radiation therapy; Z51.11 Encounter for antineoplastic chemotherapy; C50.111 Malignant neoplasm of central portion of right female breast; Z85.41 Personal history of malignant neoplasm of cervix uteri; E83.110 Hereditary hemochromatosis; Z87.891 Personal history of nicotine dependence; Z79.899 Other long term (current) drug therapy; Z79.818 Long term (current) use of other agents affecting estrogen receptors and estrogen levels; Z79.891 Long term (current) use of opiate analgesic
CPT/HCPCS: 36415; 77295; 77300; 77334; 77387; 77412; 80053; 82728; 85025; 96372; 96402; 99024; 99215; J0897; J9395

== ENCOUNTER 2024-09-09 10:30 | Oncology outpatient (recurring) (ONCR) | payer MEDICARE, OTHER, SELFPAY ==
--- NOTE | 2024-08-28 12:29 | N.ONRD TS_ITS ---
Radiation Oncology Treatment Summary Patient: Jenna Weiss MR#: [id number] : 1940 Age: 83 Sex: Female Dictated by: Dr. Christophe Miranda Date of Service: 08/28/2024 Referring Physician(s) : Diagnosis: C79.51 - Secondary malignant neoplasm of bone, Diagnosed 07/31/2024 (Active) E83.110 - Hereditary hemochromatosis, Diagnosed 12/27/2014 (Active) Z85.3 - Personal history of malignant neoplasm of breast, Diagnosed 12/27/2014 (Active) C50.111 - Malignant neoplasm of central portion of right female breast, Diagnosed 06/03/2012 (In Remission) Stage IIIA, T2, pN2a, M0, G2 Radiotherapy to Date: Course: L2, Treatment Site: [address], Ref. ID: [id number], Energy: 15X, Dose/Fx (cGy): 400, #Fx: 5 / 5, Dose Correction (cGy): 0, Total Dose Delivered (cGy): 2,000, Start Date: 08/24/2024, End Date: 08/28/2024, Elapsed Days: 4 Course: L2, Treatment Site: Sacrum, Ref. ID: [email or web address], Energy: 15X, Dose/Fx (cGy): 400, #Fx: 5 / 5, Dose Correction (cGy): 0, Total Dose Delivered (cGy): 2,000, Start Date: 08/24/2024, End Date: 08/28/2024, Elapsed Days: 4 Clinical Summary: The patient tolerated RT well. Plan: End of treatment today. Continue on the above medication until the skin reaction resolves. Follow up in one month. Signed by: Dr. Christophe Miranda>08/28/2024 12:28:59 PM <<Signature on File>>
[2024-09-09 11:05] LABS: Hematocrit 33.3 % (36-47); Hemoglobin 11.20 g/dL (11.27-16.99); Mean Corpuscular HGB Conc 33.6 g/dL (30-55); Mean Corpuscular Hemoglobin 32.9 pg (27-33); Mean Corpuscular Volume 97.9 fl (85-98); Nucleated Red Blood Cells % 0 %; Platelet Count 67 10^3/cmm (157-399); Red Blood Count 3.40 10^6/uL (3.85-5.65); White Blood Count 1.38 10^3/uL (3.29-11.43)
[2024-09-09 11:24] LABS: Alanine Aminotransferase 9 U/L (0-33); Albumin Level 3.8 g/dL (3.5-5.2); Alkaline Phosphatase 108 U/L (35-105); Anion Gap 14.1 (5-19); Aspartate Amino Transferase 14 U/L (0-32); Blood Urea Nitrogen 14 mg/dL (8-23); Calcium 8.0 mg/dL (8.5-10.5); Carbon Dioxide 23 mmol/L (22-29); Chloride 105 mmol/L (98-107); Creatinine Clr Calc Pharmacy 50.3140; Globulin 2.4 g/dL (1.3-4.6); Glucose 106 mg/dL (65-115); Osmolality Calculated 287 mOsm/kg (285-295); Potassium 4.1 mmol/L (3.5-5.1); Sodium 138 mmol/L (136-145); Total Protein 6.2 g/dL (6.6-8.7)
[2024-09-09 12:29] LABS: Slide Review Slide Review Perform
[2024-09-09 12:35] VITALS: PULSE 78; RESP 18; TEMP 36.4; O2SAT 98
== END 2024-09-17 23:59 | disposition home or self-care (01) ==
PROVIDERS: PCP Nurse Practitioner Family; Visit Provider Nurse Practitioner Family
DX: Z53.9 Procedure and treatment not carried out, unspecified reason (principal); Z51.11 Encounter for antineoplastic chemotherapy; C50.111 Malignant neoplasm of central portion of right female breast; Z17.0 Estrogen receptor positive status [ER+]; Z79.818 Long term (current) use of other agents affecting estrogen receptors and estrogen levels; C55 Malignant neoplasm of uterus, part unspecified; E83.110 Hereditary hemochromatosis; Z86.718 Personal history of other venous thrombosis and embolism; R60.9 Edema, unspecified; Z87.891 Personal history of nicotine dependence; Z92.3 Personal history of irradiation; Z79.899 Other long term (current) drug therapy; K59.09 Other constipation
CPT/HCPCS: 36415; 77336; 77387; 77412; 80053; 85025; 93970; 96402; 99024; 99213; J9395